=== PATIENT | male | born 1960 | race Caucasian/White ===

== ENCOUNTER 2025-01-08 12:52 | Emergency (ER) | payer OTHER, SELFPAY ==
[2025-01-08 13:01] VITALS: BP 158/72; PULSE 70; RESP 18; TEMP 36.6; O2SAT 97; BMI 32.5
--- NOTE | 2025-01-08 13:16 | XRR_ITS ---
PROCEDURE INFORMATION: Exam: XR Lumbosacral Spine Exam date and time: 01/08/2025 1:21 PM Age: 64 years old Clinical indication: Injury or trauma; Other: Not specified; Blunt trauma (contusions or hematomas); Additional info: Back injury TECHNIQUE: Imaging protocol: Radiologic exam of the lumbosacral spine. Views: 2 or 3 views. COMPARISON: No relevant prior studies available. FINDINGS: Bones/joints: Normal. No acute fracture. Normal alignment. Soft tissues: Unremarkable. XR/XR lumbar spine 2-3V* [id number] IMPRESSION: No acute findings.
--- NOTE | 2025-01-08 13:17 | W.ED.FALL ---
HPI - Fall General: Chief Complaint: Fall Stated Complaint: low back pain Time Seen by Provider: 01/08/25 13:07 Source: patient Mode of arrival: ambulatory Limitations: no limitations History of Present Illness: 64-year-old male states he was pulling a rope when he fell backwards and hit his low back on the stump. He states this happened 2 days ago he had some increasing bruising to his lower back along with increasing pain. Pain is currently 6 out of 10 he has no bowel or bladder incontinence he has been able ambulate denies hitting his head Associated symptoms-after fall: Denies abdominal pain, chest pain, headache(s) or neck pain Related Data Home Medications ?Medication ?Instructions ?Recorded ?Confirmed acetaminophen 650 mg 1,300 mg PO Q8H PRN Pain 01/08/25 01/08/25 tablet,extended release amlodipine 5 mg-benazepril 20 mg 1 cap PO DAILY 01/08/25 01/08/25 capsule aspirin 81 mg tablet,delayed 81 mg PO DAILY 01/08/25 01/08/25 release (Andres Low Dose Aspirin) finasteride 5 mg tablet 5 mg PO DAILY 01/08/25 01/08/25 ibuprofen 200 mg tablet (Advil) 400 mg PO Q6H PRN Pain (Scale 01/08/25 01/08/25 Score 1-3) rosuvastatin 5 mg tablet 5 mg PO DAILY 01/08/25 01/08/25 tamsulosin 0.4 mg capsule 1 mg PO QPM 01/08/25 01/08/25 Previous Rx's ?Medication ?Instructions ?Recorded naproxen 500 mg tablet (Naprosyn) 500 mg PO BID PRN pain #20 tabs 01/08/25 Allergies Allergy/AdvReac Type Severity Reaction Status Date / Time No Known Allergies Allergy Verified 01/08/25 13:05 Review of Systems Const: Denies: fever(s), chills, body aches or change in appetite ENMT: Denies: throat pain or dental pain Card: Denies: chest pain Resp: Denies: dyspnea GI: Denies: abdominal pain, nausea, vomiting or diarrhea Musc: Reports: back pain; Denies: neck pain Skin/Breast: Denies: rash Neuro: Denies: headache(s) Physical Exam Const: COMMON NORMALS: no acute distress, patient oriented x3 and healthy appearing HENMT: COMMON NORMALS: normocephalic and atraumatic HEAD & SCALP: normocephalic and atraumatic Eye: COMMON NORMALS: conjunctivae normal CONJUNCTIVA: Yes conjunctivae normal Neck/C-Spine: COMMON NORMALS: full ROM and supple Chest: COMMONS NORMALS: normal inspection of the chest Resp: COMMON NORMALS: normal respiratory effort Cardio: COMMON NORMALS: regular rate RATE: regular rate GI: COMMON NORMALS: Normal to inspection, nondistended, normoactive bowel sounds present, Soft to palpation, non-tender and no masses PALPATION: Yes Soft to palpation Back/Pelvis: OTHER: Slight tenderness over lower back noted large amount of bruising to the left lower back no CVA tenderness Extremity: COMMON NORMALS: normal to inspection and full ROM Neuro: COMMON NORMALS: patient oriented x3, moves all extremities and no focal motor deficits Psych: COMMON NORMALS: mental status grossly normal, Normal thought process present and cooperative THOUGHT PROCESS: Normal thought process present Skin: COMMON NORMALS: no rashes or lesions noted and no wounds GENERAL SKIN EXAM: no rashes or lesions noted Course Vital Signs: Vital signs: Vital Signs Temperature 98 F 01/08/25 13:01 Pulse Rate 75 01/08/25 14:15 Respiratory Rate 18 01/08/25 13:01 Blood Pressure 145/69 01/08/25 14:15 Pulse Oximetry 97 01/08/25 14:15 Oxygen Delivery Me thod Room Air 01/08/25 14:15 MDM - Fall Medical Decision Making Patient presents here with a back contusion from a fall no signs of kidney injury no blood in his urine x-ray was negative no spine fracture he stable for discharge follow-up PCP return if worsening. Medical Records I reviewed the patient's medical records. Lab Data Radiology Impressions Lumbar Spine X-Ray 01/08/25 13:16 IMPRESSION: No acute findings. Laboratory Results Urine Color Yellow (Yellow) 01/08/25 13:57 Urine Appearance Clear (CLEAR) 01/08/25 13:57 Urine pH 5.0 (5-7) 01/08/25 13:57 Ur Specific [place] 1.036 (1.005-1.030) H 01/08/25 13:57 Urine Protein Negative (Negative) 01/08/25 13:57 Urine Glucose (UA) Negative (Normal) 01/08/25 13:57 Urine Ketones Trace (Negative) 01/08/25 13:57 Urine Blood Negative (Negative) 01/08/25 13:57 Urine Nitrate Negative (Negative) 01/08/25 13:57 Urine Bilirubin Negative (Negative) 01/08/25 13:57 Urine Urobilinogen 1.0 mg/dL (Negative) 01/08/25 13:57 Ur Leukocyte Esterase Negative (Negative) 01/08/25 13:57 Urine RBC 0-2 /hpf (0-2) 01/08/25 13:57 Urine WBC 0-5 /hpf (0-5) 01/08/25 13:57 Ur Squamous Epith Cells 0-5 /hpf (0-5) 01/08/25 13:57 Amorphous Sediment Not Reportable 01/08/25 13:57 Urine Bacteria None seen /hpf (NONE) 01/08/25 13:57 Hyaline Casts 4.11 /lpf 01/08/25 13:57 All radiology interpretation(s) finalized by discharge Discharge Plan Discharge Patient Disposition: Home Clinical Impression: Fall, Contusion of lower back Condition: Stable Prescriptions: New naproxen [Naprosyn] 500 mg tablet 500 mg PO BID PRN (Reason: pain) Qty: 20 0RF No Action aspirin [Andres Low Dose Aspirin] 81 mg Tablet,Delayed Release (Dr/Ec) 81 mg PO DAILY acetaminophen [Tylenol Arthritis] 650 mg Tablet Extended Release 1,300 mg PO Q8H PRN (Reason: Pain) tamsulosin 0.4 mg capsule 1 mg PO QPM amlodipine-benazepril 5-20 mg capsule 1 cap PO DAILY ibuprofen [Advil] 200 mg Tablet 400 mg PO Q6H PRN (Reason: Pain (Scale Score 1-3)) finasteride 5 mg tablet 5 mg PO DAILY rosuvastatin 5 mg tablet 5 mg PO DAILY Discharge Orders: Discharge ED (Routine); Ordered 01/08/25 Ordered By: Sabi Dior Referrals: Yen Queen M.D. 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
[2025-01-08 14:04] LABS: Glucose Urine UA Negative (Normal); Nitrate Urine Negative (Negative)
[2025-01-08 14:08] LABS: Add Urine Microscopic? YES
[2025-01-08 14:15] VITALS: BP 145/69; PULSE 75; O2SAT 97
[2025-01-08] MEDS: HYDROcodone-acetaminophen 7.5-325 mg Tablet 1 TAB PO (14:15)
[2025-01-08 14:16] LABS: Specific Gravity, Urine 1.036 (1.005-1.030)
[2025-01-08 15:01] VITALS: BP 135/56; PULSE 70; O2SAT 96
== END 2025-01-08 15:01 | disposition home or self-care (01) ==
PROVIDERS: Emergency Provider Emergency Medicine; PCP Family Medicine
DX: S30.0XXA Contusion of lower back and pelvis, initial encounter (principal); Z79.82 Long term (current) use of aspirin; W19.XXXA Unspecified fall, initial encounter
CPT/HCPCS: 72100; 81001; 99284; J9999

== ENCOUNTER 2025-05-21 10:01 | Outpatient (RCR) | payer OTHER, SELFPAY | END 2025-05-25 23:59 | disposition home or self-care (01) | LOC: TPT 10:01 | DX: G57.01 Lesion of sciatic nerve, right lower limb (principal) | CPT/HCPCS: 97110; 97140; 97161 ==

== ENCOUNTER 2025-05-29 09:59 | Outpatient (CLI) | payer OTHER, SELFPAY ==
--- NOTE | 2025-05-29 10:15 | CTR_ITS ---
PROCEDURE INFORMATION: Exam: CT Lumbar Spine Without Contrast Exam date and time: 05/29/2025 10:13 AM Age: 64 years old Clinical indication: Injury or trauma; Other: Twisting injury; Sprain or strain, lumbar ligaments; Injury date: 04/20/25; Injury details: Twisted lower back while getting into semi truck on apr 20, continued pain in lower back; Additional info: Intractable pain and limited movement, 4 weeks w working dx of pulled muscle has begun PT, TECHNIQUE: Imaging protocol: Computed tomography of the lumbar spine without contrast. Radiation optimization: All CT scans at this facility use at least one of these dose optimization techniques: automated exposure control; mA and/or kV adjustment per patient size (includes targeted exams where dose is matched to clinical indication); or iterative reconstruction. COMPARISON: CR XR lumbar spine 2-3V* [id number] 01/08/2025 1:21 PM RADIATION DOSE METRICS: Total DLP (mGy-cm): 938.11 FINDINGS: Bones/joints: No fracture or facet subluxation. L1-L2 level: Unremarkable. L2-L3 level: Minimal bulging disc. Mild right-sided facet hypertrophy changes. L3-L4 level: Bulging disc with effacement of bilateral lateral recesses. Bilateral facet hypertrophy changes. Moderate central canal stenosis. L4-L5 level: Bulging disc with effacement of bilateral lateral recesses. L5-S1 level: Bulging disc with a protrusion component measuring 1.7 x 0.7 x 1.2 cm. This is causing effacement of right-sided lateral recess. Stomach and bowel: Scattered diverticulosis is seen. Vasculature: Mild calcified atherosclerotic changes are seen throughout the abdominal aorta. Soft tissues: Unremarkable. CT/CT lumbar spine wo con* [id number] IMPRESSION: 1. Multilevel spondylotic changes as detailed above. Moderate central canal stenosis at L3-L4 level. Bulging disc with a disc protrusion at L5-S1 level. Multilevel lateral recess effacement as described. 2. Scattered diverticulosis is seen.
== END 2025-05-29 10:00 | disposition home or self-care (01) ==
LOC: RAD 10:00
PROVIDERS: Visit Provider Family Medicine
DX: M51.369 Other intervertebral disc degeneration, lumbar region without mention of lumbar back pain or lower extremity pain (principal); M54.17 Radiculopathy, lumbosacral region
CPT/HCPCS: 72131

== ENCOUNTER 2025-06-02 09:56 | Outpatient (RCR) | payer OTHER, SELFPAY | END 2025-06-11 09:04 | disposition home or self-care (01) | LOC: TPT 09:56 | DX: G57.01 Lesion of sciatic nerve, right lower limb (principal) | CPT/HCPCS: 97110; 97140 ==

== ENCOUNTER → 2025-06-12 15:36 | Outpatient (BNVA) | payer OTHER, SELFPAY | PROVIDERS: Visit Provider Orthopaedic Surgery | DX: M54.17 Radiculopathy, lumbosacral region (principal); M51.369 Other intervertebral disc degeneration, lumbar region without mention of lumbar back pain or lower extremity pain | CPT/HCPCS: 72110 ==

== ENCOUNTER 2025-06-18 12:17 | Outpatient (CLI) | payer OTHER, SELFPAY ==
--- NOTE | 2025-06-18 16:00 | MR_ITS ---
WS: [id number] MRI LUMBAR SPINE NONCONTRAST TECHNIQUE: Sagittal T1, T2 and STIR imaging. Axial T1 and T2 imaging. CLINICAL INFORMATION: lower back pain COMPARISON: None. FINDINGS: Mild lumbar curve. No acute compression. RIGHT paracentral disc protrusion L5-S1. L1-L2: Mild facet arthropathy. Spinal canal and foramen are patent. L2-L3: Mild annular bulging. Mild central canal stenosis. Moderate facet arthropathy. Foramen are patent. L3-L4: Slight anterolisthesis. Mild annular bulging. Moderate to severe central canal stenosis with impingement on the traversing L4 nerve roots bilaterally. Moderate facet arthropathy. Mild LEFT and no significant RIGHT foraminal narrowing. L4-L5: Mild annular bulging. Mild central canal stenosis. Impingement of the traversing L5 nerve roots bilaterally. Moderate facet arthropathy. Mild LEFT foraminal narrowing. RIGHT foramen is patent. L5-S1: RIGHT paracentral disc protrusion impinges the traversing RIGHT S1 nerve root in the subarticular recess. Mild central canal stenosis. Moderate facet arthropathy. Foramen are patent. Visualized pelvic bony structures: Normal. Paravertebral soft tissues: Normal. MR/MR lumbar spine wo con* [id number] IMPRESSION: 1. Mild lumbar curve. 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 2. Mild central canal stenosis L2-3 and moderate to severe L3-4 with impingeme nt subarticular recess bilaterally. 3. Mild central canal stenosis L4-5 impinges the traversing L5 nerve roots otis aterally. 4. RIGHT paracentral protrusion L5-S1 impinges the traversing RIGHT S1 nerve r oot in the subarticular recess. 5. Small LEFT foraminal protrusion L3-4 with mild LEFT foraminal narrowing. Mi ld LEFT L4-5 foraminal narrowing. 6. Moderate facet arthropathy L3-L5.
== END 2025-06-18 12:18 | disposition home or self-care (01) ==
LOC: RAD 12:19
PROVIDERS: PCP Family Medicine; Visit Provider Orthopaedic Surgery
DX: M54.17 Radiculopathy, lumbosacral region (principal); M51.369 Other intervertebral disc degeneration, lumbar region without mention of lumbar back pain or lower extremity pain
CPT/HCPCS: 72148